=== PATIENT | female | born 1950 | race Caucasian/White ===

== ENCOUNTER 2017-03-05 10:03 | Inpatient (IN) | payer OTHER ==
[2017-02-19 15:42] VITALS: BMI 27.0
--- NOTE | 2017-02-19 16:03 | PAT Medication Instructions ---
Service Date Feb 19, 2017. Current Home Medication List Ascorbic Acid (Vitamin C Tr/Vaishnavi Hips), 1,000 MG PO QAM Cholecalciferol (Vitamin D3), 1 CAP PO QAM Coenzyme Q10 (Ubidecarenone) (Coq10), 100 MG PO QPM Lisinopril/Hctz (Zestoretic 20MG/12.5MG), 1 TAB PO QAM Loratadine (Claritin), 10 MG PO PRN Multiple Vitamin (Multi Vitamin), 1 TAB PO QAM Naproxen-Esomeprazole Magnesiu (Vimovo), 500 MG PO BID Saline (Saline Nasal [place] ), 1 SPRY CASSY PRN Sertraline (Zoloft), 100 MG PO QAM Simvastatin (Zocor), 20 MG PO QPM Tramadol/Acetaminophen (Ultracet), 1 TAB PO BID [Premarin Cream], 1 DOSE TOP [id number] Medication Instructions For Your Scheduled Surgery - Check with surgeon for instructions: Naproxen-Esomeprazole Magnesiu (Vimovo), 500 MG PO BID - Hold the following medications 2 weeks prior to surgery: Coenzyme Q10 (Ubidecarenone) (Coq10), 100 MG PO QPM - Hold the following medications 24 hours prior to surgery: [Premarin Cream], 1 DOSE TOP 2XWEEEK - Hold the following medications the morning of surgery: Multiple Vitamin (Multi Vitamin), 1 TAB PO QAM Loratadine (Claritin), 10 MG PO PRN Lisinopril/Hctz (Zestoretic 20MG/12.5MG), 1 TAB PO QAM Ascorbic Acid (Vitamin C Tr/Vaishnavi Hips), 1,000 MG PO QAM Cholecalciferol (Vitamin D3), 1 CAP PO QAM - Take the following medications the morning of surgery with a sip of water: Tramadol/Acetaminophen (Ultracet), 1 TAB PO BID Sertraline (Zoloft), 100 MG PO QAM Saline (Saline Nasal [place] Infant), 1 SPRY CASSY PRN (if needed) - Take the following medications as scheduled the night before surgery: Simvastatin (Zocor), 20 MG PO QPM Tramadol/Acetaminophen (Ultracet), 1 TAB PO BID Saline (Saline Nasal [place] Infant), 1 SPRY CASSY PRN (if needed) Loratadine (Claritin), 10 MG PO PRN (if needed) If you have any questions please call us at [phone] or [phone] or [phone]
--- NOTE | 2017-02-19 16:33 | DIAGNOSTIC IMAGING REPORT ---
CHEST PREADMISSION(PA/LAT) CLINICAL HISTORY: Preoperative chest COMPARISON STUDY: No previous studies for comparison. FINDINGS: The cardiac and mediastinal contours are normal. There is no evidence of focal pulmonary consolidation. There is no evidence of failure. No pleural effusions are visualized.[ Linear bibasilar opacities are felt to be atelectatic. IMPRESSION: No active disease in the chest. Electronically signed by: Lc Rich M.D. 02/19/2017 4:32 PM Dictated Date/Time: 02/19/2017 4:31 PM
[2017-02-19 16:45] LABS: BUN/CREATININE RATIO 29.2 (10-20); CALCIUM 9.4 mg/dl (8.5-10.1); CREATININE 0.78 mg/dl (0.60-1.20); POTASSIUM 3.9 mmol/L (3.5-5.1)
[2017-02-19 16:49] LABS: BASO % 0.4 %; BASO ABS # 0.03 K/uL (0-0.2); COMPLETE YES; EOS % 2.4 %; HEMATOCRIT 43.8 % (37-47); IG% 0.1 %; LYMPH % 29.6 %; LYMPH ABS # 2.35 K/uL (1.2-3.4); MEAN CELL VOLUME 93.2 fL (80-100); MEAN CORPUSCULAR HEMOGLOBIN 31.1 pg (25-34); MEAN CORPUSCULAR HGB CONC 33.3 g/dl (32-36); MEAN PLATELET VOLUME 10.3 fL (7.4-10.4); NEUT % 60.5 %; PLATELET COUNT 162 K/uL (130-400); WHITE BLOOD COUNT 7.95 K/uL (4.8-10.8)
[2017-02-19 16:57] LABS: PROTHROMBIN TIME (PATIENT) 10.5 SECONDS (9.0-12.0)
--- NOTE | 2017-02-28 11:58 | HISTORY & PHYSICAL EXAMINATION ---
DATE OF ADMISSION: 03/05/2017 CHIEF COMPLAINT: Loss of urine with coughing or sneezing, mass protruding from the vagina. HISTORY OF PRESENT ILLNESS: The patient is a 66-year-old 1, para 1, general health is good. She went through menopause at age 56, has had no bleeding since. She is experiencing loss of urine with coughing or sneezing for over a year and she now has the bladder start to bulge out through the vaginal opening for over 4 months. All these symptoms have been getting progressively worse. Recently been ultrasounded, showed no pathology. Pelvic exam revealed a cystocele and rectocele, good support of the cervix and uterus. Presently being scheduled for an anterior, posterior repair and suprapubic cystocath. PAST MEDICAL HISTORY: She has 1 child, a girl 25 years old. She has a history of high blood pressure and she is on lisinopril. ALLERGIES: She has no known drug allergies. PAST SURGICAL HISTORY: She has had a tonsillectomy and adenoidectomy. She had an ovarian cyst removed. She had a . She had breast reduction. CHRONIC MEDICATIONS: Include tramadol, Zoloft 100 mg a day and an anti-inflammatory medication. 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 FAMILY HISTORY: Mom at age 69 of complications of diabetes and congestive heart failure. Father at age 82 myocardial infarction. She has 1 brother and 3 sisters in good health. REVIEW OF SYSTEMS: HEAD: No symptoms of frequent or severe headaches. EYES: No symptoms of blurred vision or double vision. EARS: No symptoms of frequent ear infections, difficulty hearing. NOSE: No symptoms of frequent nosebleeds, difficulty breathing through her nose. THROAT: No symptoms of frequent or severe sore throats, difficulty swallowing. RESPIRATORY SYSTEM: No history of asthma, chest pain, shortness of breath. PHYSICAL EXAMINATION: GENERAL: Well-developed, well-nourished 66-year-old white female, alert, oriented x3 and cooperative in no acute distress, appeared her stated age. EYES: Conjunctivae are pink, sclerae white, no evidence of jaundice. EARS: Had normal light reflex bilaterally. NOSE: Had normal mucosa. Septum is midline. There were no polyps. THROAT: No erythema or evidence of infection. Teeth are in good state of repair. HEAD: Was normocephalic, normal distribution of hair. NECK: Supple. Trachea midline. Thyroid is not enlarged. There is no adenopathy appreciated. Both carotids are of good intensity. CHEST: Clear to auscultation and percussion. No wheezes, rales or rhonchi appreciated. HEART: Had regular rhythm. ABDOMEN: Soft and nontender. PELVIC EXAMINATION: Revealed normal-appearing cervix. The bladder would bulge out of the vaginal opening on coughing or sneezing. She appeared to have a second degree cystocele and a first to second degree rectocele. There was good support of the uterus and cervix. MUSCULOSKELETAL EXAMINATION: Revealed no calf tenderness. IMPRESSIONS OF THIS CASE: Status post T&A, status post , status post breast reduction, status post ovarian cystectomy and symptomatic cystocele and rectocele.
[~2017-03-05] VITALS: Ht 162.6 cm; Wt 72.7 kg
[2017-03-05] VITALS (14 sets, daily range): BP systolic 107–154; BP diastolic 59–79; PULSE 63–83; TEMP 36.3–36.8; O2SAT 86–99; Ht 162.6 cm; Wt 72.7 kg
[~2017-03-05 10:03] MED LIST: ACETAMINOPHEN 1000 MG/100 ML IV IV ONE; ASCO500T87 PO; CEFOXITIN IV 2,000 MG in DEXTROSE 5% 50ML 50 ML IV SCH; CHOL2000 PO; CLR10 PO; COEN100C7 PO; LACTATED RINGER'S 1000ML 1,000 ML IV SCH; LISI-787 PO; MULT-1027 PO; NAPR-943 PO; PREMARIN CREAM TOP; SALI1SPR15 NAE; SERT-234 PO; SIMV20TA2 PO; TRAMTAB5 PO
[2017-03-05] MEDS ORDERED: LIDOCAINE HCL 2% 2 ML VIAL (20MG/ML) ONE (10:22)
[2017-03-05] MEDS ORDERED: FENTANYL CITRATE INJ 50 MCG/1 ML 2 ML VIAL ONE ×2 (10:22→11:11)
[2017-03-05] MEDS ORDERED: PROPOFOL IV EMULSION 10 MG/ML 20 ML VIAL IV ONE (10:22)
[2017-03-05] MEDS ORDERED: MIDAZOLAM HCL 1 MG/ML 2ML VIAL ONE (10:22)
[2017-03-05] MEDS ORDERED: GLYCOPYRROLATE INJ 0.2 MG/ML VIAL ONE (10:24)
[2017-03-05] MEDS ORDERED: DEXAMETHASONE SOD INJ 4 MG/ML VIAL ONE (10:24)
[2017-03-05] MEDS ORDERED: ROCURONIUM BROMIDE 10 MG/ML 5 ML VIAL ONE (10:24)
[2017-03-05] MEDS ORDERED: ONDANSETRON INJ 2 MG/ML 2 ML VIAL ONE (10:24)
[2017-03-05] MEDS ORDERED: NEOSTIGMINE METHYLSULFATE 5 MG/5 ML SYR ONE (10:24)
[2017-03-05] MEDS ORDERED: LIDOCAINE/EPINEPHRINE 1% 20 ML VIAL ONE (10:47)
--- NOTE | 2017-03-05 11:08 | History & Physical Bridge Note ---
H&P Re-Evaluation Bridge Note: I have examined the patient, reviewed the History & Physical and in the interval since the performance of the History & Physical I have noted the following changes of clinical significance: No changes noted
[2017-03-05] MEDS ORDERED: MoRPHine SULFATE PF 1 MG/ML 10 ML AMP/VIAL ONE (11:11)
[2017-03-05] MEDS ORDERED: BUPIVACAINE/EPINEPHRINE 0.25% 1:200,000 30 ML VIAL ONE (11:11)
[2017-03-05] MEDS ORDERED: SULFANILAMIDE 15% CR 120 GM TUBE ONE (11:13)
[2017-03-05] MEDS ORDERED: BUPIVACAINE 0.25% 30 ML VIAL ONE (12:32)
[2017-03-05] MEDS ORDERED: MAGNESIUM HYDROXIDE SUSP 30 ML UDC PO PRN (14:00)
[2017-03-05] MEDS ORDERED: BISACODYL 10 MG SUPP PR PRN (14:00)
--- NOTE | 2017-03-05 14:01 | [facility] Post Operative Brief Note ---
Immediate Operative Summary Operative Date Mar 05, 2017. Pre-Operative Diagnosis status post ovarian cystectomy and symptomatic cystocele and rectocele Post-Operative Diagnosis status post ovarian cystectomy and symptomatic cystocele and rectocele Procedure(s) Performed anterior cholporraphy Surgeon Dr. Phong Arevalo Contemporary Or Modern Dancer Surgeon(s) none Estimated Blood Loss 50ml Findings cystocele second to third degree Specimens A) Vaginal Mucosa Complication(s) None Disposition Recovery Room / PACU
[2017-03-05] MEDS ORDERED: LACTATED RINGER'S 1000ML 500 ML IV PRN (14:24)
[2017-03-05] MEDS ORDERED: NALOXONE HCL INJ 0.08 MG in SYRINGE 1.8 ML IV PRN (14:24)
[2017-03-05] MEDS ORDERED: SODIUM CHLORIDE 0.9% 1000ML 1,000 ML IV PRN (14:24)
[2017-03-05] MEDS ORDERED: NALOXONE HCL INJ 1 MG in SODIUM CHLORIDE 0.9% 1000ML 1,000 ML IV PRN ×4 (14:24)
[2017-03-05] MEDS ORDERED: EpHEDrine SULFATE INJ 50 MG/ML AMP IV PRN (14:30)
[2017-03-05] MEDS ORDERED: NO NARCOTICS OR SEDATIVES SCH (14:30)
[2017-03-05] MEDS ORDERED: NALOXONE HCL 0.4 MG/1 ML VIAL/CARP IV PRN (14:30)
[2017-03-05] MEDS ORDERED: DiphenhydrAMINE HCL 50 MG/ML VIAL IV PRN (14:30)
[2017-03-05] MEDS ORDERED: PROMETHAZINE HCL INJ 25 MG in SODIUM CHLORIDE 0.9% 50ML 50 ML IV PRN (14:30)
[2017-03-05] MEDS ORDERED: NALBUPHINE HCL INJ 10 MG/ML AMP IV PRN (14:30)
[2017-03-05] MEDS ORDERED: ONDANSETRON INJ 2 MG/ML 2 ML VIAL IV PRN (14:30)
[2017-03-05] MEDS ORDERED: MoRPHine SULFATE PF 1 MG/ML 10 ML AMP/VIAL EPI PRN (14:30)
--- NOTE | 2017-03-05 14:41 | Anesthesiology Progress Note ---
Anesthesia Post Op Note Date & Time Mar 05, 2017 at 14:41 Vital Signs Pain Intensity: 0 Vital Signs Past 12 Hours Date Time Temp Pulse Resp B/P (MAP) Pulse Ox O2 Delivery O2 Flow Rate FiO2 03/05/17 14:35 84 20 144/69 94 Oxymask 2 03/05/17 14:25 86 20 135/76 96 Oxymask 5 03/05/17 14:15 88 20 125/87 98 Oxymask 10 03/05/17 14:05 36.0 95 20 104/87 98 Oxymask 10 03/05/17 11:07 36.8 63 20 129/63 Room Air Notes Mental Status: alert / awake / arousable, participated in evaluation Pt Amnestic to Procedure: Yes Nausea / Vomiting: adequately controlled Pain: adequately controlled Airway Patency, RR, SpO2: stable & adequate BP & HR: stable & adequate Hydration State: stable & adequate Anesthetic Complications: no major complications apparent
--- NOTE | 2017-03-05 14:53 | OPERATIVE REPORT ---
DATE OF OPERATION: 03/05/2017 INDICATIONS FOR SURGERY: Stress incontinence, mass protruding from the vagina on coughing or sneezing. PREOPERATIVE DIAGNOSIS: Stress incontinence, symptomatic cystocele, possible rectocele. POSTOPERATIVE DIAGNOSIS: Second to third degree cystocele with loss of urethrovesical angle support and good support of the rectum. PROCEDURE: Anterior colporrhaphy with insertion of suprapubic cystocath. SURGEON: Dr. Arevalo. ESTIMATED BLOOD LOSS: 50 mL. ANESTHESIA: General with spinal narcotics. OPERATIVE FINDINGS AND PROCEDURE: The patient was brought to the OR table, correctly identified by armband and conversation. Spinal narcotics was administered and then general anesthesia was administered. Perineum, vagina and lower abdomen were painted with Betadine paint, draped in usual sterile fashion. Catheter was used to empty the bladder. A weighted speculum was placed in the posterior vagina after the vagina was prepped with Betadine solution. Cystocele was identified, grasped in the midline 1 cm from the external urethral meatus and local with epinephrine was injected entire length of the anterior vagina right up to the cervix. Incision was made and then was continued to the cervix and the vaginal mucosa was dissected off the bladder laterally and up to the urethrovesical angle. Following this, interrupted sutures of 4-0 Vicryl was used to approximate the fascial layer supporting the bladder and supporting the bladder neck. This was done in 4 layers because of the extent of the defect. Then the excess vaginal mucosa was cut away and a suture of heavy duty chromic was used to support urethrovesical angle was placed lateral on each side, tied in the middle and then a mattress suture was used to approximate the vaginal angle at the angle of the urethrovesical angle and this was placed in a mattress fashion. Then the vaginal edges were approximated with interrupted figures of 4-0 Vicryl. Following this, hemostasis was good. Inspection of the posterior portion of the vagina revealed good support. You could feel the fascia was intact and also there was a vaginal capacity was rather small and performing a posterior repair would make the vagina nonfunctional. Following this iodoform packing soaked in sulfur used to pack the vagina then the bladder was filled with 500 mL of normal saline. Suprapubic catheterization was inserted by using a trocar to enter the bladder then threading the catheter in and then sewing it fast to the anterior abdominal wall and connected to gravity drainage. After this was done 200 mL of clear normal saline was removed from the bladder and then the suprapubic catheter was connected to gravity drainage. Estimated blood loss was 50 mL. I attest to the content of the Intraoperative Record and any orders documented therein. Any exception s are noted below.
[2017-03-05] MEDS: D5W AND LACTATED RINGERS 1,000 ML IV SCH ×2 (16:49→22:47)
[2017-03-05] MEDS: LISINOPRIL/HCTZ 20/12.5MG TAB PO SCH (18:00)
[2017-03-06] VITALS (12 sets, daily range): BP systolic 107–132; BP diastolic 61–74; PULSE 60–73; TEMP 36.4–36.6; O2SAT 94–98
[2017-03-06] MEDS: D5W AND LACTATED RINGERS 1,000 ML IV SCH (06:38)
[2017-03-06] MEDS ORDERED: DC INTRASPINAL MORPHINE SCH (07:00)
[2017-03-06] MEDS ORDERED: MEPERIDINE HCL 50 MG/ML CARP IV PRN ×2 (07:01)
[2017-03-06] MEDS ORDERED: ONDANSETRON INJ 2 MG/ML 2 ML VIAL IV PRN (07:01)
[2017-03-06] MEDS ORDERED: KETOROLAC TROMETHAMINE 15 MG/ML VIAL IV. PRN (07:01)
[2017-03-06 07:03] LABS: BASO % 0.1 %; BASO ABS # 0.01 K/uL (0-0.2); COMPLETE YES; HEMATOCRIT 38.7 % (37-47); IG% 0.2 %; LYMPH % 16.3 %; LYMPH ABS # 1.81 K/uL (1.2-3.4); MEAN CELL VOLUME 94.4 fL (80-100); MEAN CORPUSCULAR HEMOGLOBIN 30.7 pg (25-34); MEAN CORPUSCULAR HGB CONC 32.6 g/dl (32-36); MEAN PLATELET VOLUME 9.7 fL (7.4-10.4); MONO % 8.4 %; PLATELET COUNT 145 K/uL (130-400)
[2017-03-06] MEDS: SERTRALINE HCL 100 MG TAB PO SCH (08:36)
[2017-03-06] MEDS: LISINOPRIL/HCTZ 20/12.5MG TAB PO SCH (08:37)
[2017-03-06] MEDS: MULTIVITAMIN TAB PO SCH ×2 (08:48→10:20)
[2017-03-06] MEDS: IBUPROFEN 600 MG TAB PO PRN ×2 (10:21→19:21)
[2017-03-06] MEDS: OXYCODONE/ACETAMINOPHEN 5-325 TAB PO PRN ×2 (10:21→19:22)
--- NOTE | 2017-03-06 10:31 | Anesthesiology Progress Note ---
Anesthesia Post Op Note Date & Time Mar 06, 2017 at 10:29 Vital Signs Pain Intensity: 4.0 Vital Signs Past 12 Hours Date Time Temp Pulse Resp B/P (MAP) Pulse Ox O2 Delivery O2 Flow Rate FiO2 03/06/17 07:30 Room Air 03/06/17 07:30 36.4 68 18 110/69 (83) 95 Room Air 03/06/17 07:00 18 97 03/06/17 06:00 16 94 03/06/17 05:30 16 94 03/06/17 05:30 16 94 Room Air 03/06/17 04:15 18 97 03/06/17 04:15 36.6 73 18 107/61 (76) 97 Nasal Cannula 0.5 03/06/17 03:30 16 97 03/06/17 02:35 16 98 03/06/17 01:30 16 97 03/06/17 00:00 18 98 03/05/17 23:30 36.8 70 18 107/59 (75) 98 Nasal Cannula 1.0 03/05/17 23:30 98 Nasal Cannula 1.0 03/05/17 23:30 18 98 Notes Mental Status: alert / awake / arousable, participated in evaluation Pt Amnestic to Procedure: Yes Nausea / Vomiting: adequately controlled Pain: adequately controlled Airway Patency, RR, SpO2: stable & adequate BP & HR: stable & adequate Hydration State: stable & adequate Anesthetic Complications: no major complications apparent Anesthetic Complications: Pt c/o itching yesterday and throughout night. Benadryl was given with some relief.
--- NOTE | 2017-03-06 10:44 | Progress Note ---
Subjective Mar 06, 2017. Subjective conversation w/ patient Ambulation: ambulating normally Voiding: no voiding problems Passing Gas: Yes Diet Tolerance: Regular Diet Lochia: Small Review of Systems Constitutional: + fever Objective Vital Signs Date Time Temp Pulse Resp B/P (MAP) Pulse Ox O2 Delivery O2 Flow Rate FiO2 03/06/17 07:30 Room Air 03/06/17 07:30 36.4 68 18 110/69 (83) 95 Room Air 03/06/17 07:00 18 97 03/06/17 06:00 16 94 03/06/17 05:30 16 94 03/06/17 05:30 16 94 Room Air 03/06/17 04:15 18 97 03/06/17 04:15 36.6 73 18 107/61 (76) 97 Nasal Cannula 0.5 03/06/17 03:30 16 97 03/06/17 02:35 16 98 03/06/17 01:30 16 97 03/06/17 00:00 18 98 03/05/17 23:30 36.8 70 18 107/59 (75) 98 Nasal Cannula 1.0 03/05/17 23:30 98 Nasal Cannula 1.0 03/05/17 23:30 18 98 03/05/17 22:15 20 97 03/05/17 21:15 20 99 03/05/17 20:00 20 97 03/05/17 19:45 36.3 78 20 126/71 (89) 97 Nasal Cannula 1.5 03/05/17 18:53 18 98 03/05/17 18:00 36.3 76 18 117/62 (80) 97 Nasal Cannula 2.0 03/05/17 18:00 18 97 03/05/17 17:00 20 99 03/05/17 17:00 36.7 73 20 125/71 (89) 99 Nasal Cannula 2.0 03/05/17 16:59 88 Room Air 03/05/17 16:00 36.4 78 20 139/79 (99) 96 Nasal Cannula 2.0 03/05/17 16:00 20 96 03/05/17 15:59 86 Room Air 03/05/17 15:30 36.4 76 18 128/73 (91) 93 Room Air 03/05/17 15:00 Room Air 03/05/17 15:00 97 Nasal Cannula 2.0 03/05/17 15:00 36.6 83 20 154/74 (100) 97 Nasal Cannula 2.0 03/05/17 15:00 20 97 03/05/17 14:45 36.8 77 20 148/69 94 Oxymask 2 03/05/17 14:35 84 20 144/69 94 Oxymask 2 03/05/17 14:25 86 20 135/76 96 Oxymask 5 03/05/17 14:15 88 20 125/87 98 Oxymask 10 03/05/17 14:05 36.0 95 20 104/87 98 Oxymask 10 03/05/17 11:07 36.8 63 20 129/63 Room Air Physical Exam General Appearance: WELL-APPEARING Fundus: Firm, Non-Tender Extremities: no pedal edema, no calf tenderness Laboratory Results Last 24 Hours Test 03/06/17 06:47 White Blood Count 11.10 K/uL Red Blood Count 4.10 M/uL Hemoglobin 12.6 g/dL Hematocrit 38.7 % Mean Corpuscular Volume 94.4 fL Mean Corpuscular Hemoglobin 30.7 pg Mean Corpuscular Hemoglobin Concent 32.6 g/dl Platelet Count 145 K/uL Mean Platelet Volume 9.7 fL Neutrophils (%) (Auto) 75.0 % Lymphocytes (%) (Auto) 16.3 % Monocytes (%) (Auto) 8.4 % Eosinophils (%) (Auto) 0.0 % Basophils (%) (Auto) 0.1 % Neutrophils # (Auto) 8.33 K/uL Lymphocytes # (Auto) 1.81 K/uL Monocytes # (Auto) 0.93 K/uL Eosinophils # (Auto) 0.00 K/uL Basophils # (Auto) 0.01 K/uL RDW Standard Deviation 43.4 fL RDW Coefficient of Variation 12.6 % Immature Granulocyte % (Auto) 0.2 % Immature Granulocyte # (Auto) 0.02 K/uL Assessment and Plan Post-Op Day#: 1
[2017-03-06] MEDS ORDERED: NURSING VERBAL MED ORDER ONE ×2 (11:00→14:15)
[2017-03-06] MEDS ORDERED: [UNRECOGNIZED DRUG - REMARK] SCH (16:00)
[2017-03-06] MEDS: ESOMEPRAZOLE PO SCH (21:00)
[2017-03-06] MEDS: NAPROXEN PO SCH (21:00)
[2017-03-06] MEDS: SIMVASTATIN 20 MG TAB PO SCH (21:06)
[2017-03-07] MEDS: IBUPROFEN 600 MG TAB PO PRN
[2017-03-07] MEDS: OXYCODONE/ACETAMINOPHEN 5-325 TAB PO PRN ×6 (00:01→22:55)
[2017-03-07] MEDS ORDERED: SODIUM CHLORIDE 0.65% NA SOLN 45 ML (OCEAN) ONE (01:02)
[2017-03-07 06:31] LABS: BASO % 0.1 %; BASO ABS # 0.01 K/uL (0-0.2); COMPLETE YES; HEMATOCRIT 36.3 % (37-47); IG% 0.1 %; LYMPH % 38.8 %; LYMPH ABS # 3.13 K/uL (1.2-3.4); MEAN CELL VOLUME 94.8 fL (80-100); MEAN CORPUSCULAR HEMOGLOBIN 31.3 pg (25-34); MEAN CORPUSCULAR HGB CONC 33.1 g/dl (32-36); MEAN PLATELET VOLUME 9.9 fL (7.4-10.4); MONO % 7.3 %; NEUT % 50.7 %; PLATELET COUNT 126 K/uL (130-400); RED BLOOD COUNT 3.83 M/uL (4.2-5.4); WHITE BLOOD COUNT 8.07 K/uL (4.8-10.8)
[2017-03-07 07:57] VITALS: BP 120/75; PULSE 62; TEMP 36.7; O2SAT 93
[2017-03-07] MEDS ORDERED: CHOLECALCIFEROL 1000 INTER.UNIT TAB PO SCH (09:00)
[2017-03-07] MEDS: SERTRALINE HCL 100 MG TAB PO SCH (09:15)
[2017-03-07] MEDS: NAPROXEN PO SCH ×2 (09:15→20:35)
[2017-03-07] MEDS: ESOMEPRAZOLE PO SCH ×2 (09:15→20:35)
[2017-03-07] MEDS: LISINOPRIL/HCTZ 20/12.5MG TAB PO SCH (09:16)
[2017-03-07] MEDS: MULTIVITAMIN TAB PO SCH (09:16)
[2017-03-07] MEDS: CHOLECALCIFEROL 1000 INTER.UNIT TAB PO SCH (09:16)
[2017-03-07] MEDS: ASCORBIC ACID 500 MG TAB PO SCH (09:16)
--- NOTE | 2017-03-07 10:31 | Progress Note ---
Subjective Mar 07, 2017. Subjective conversation w/ patient Ambulation: ambulating normally Voiding: no voiding problems, swann catheter in place Passing Gas: Yes Diet Tolerance: Regular Diet Lochia: Small Review of Systems Constitutional: + fever Objective Vital Signs Date Time Temp Pulse Resp B/P (MAP) Pulse Ox O2 Delivery O2 Flow Rate FiO2 03/07/17 08:00 Room Air 03/07/17 07:57 36.7 62 16 120/75 (90) 93 Room Air 03/06/17 23:15 96 Room Air 03/06/17 16:00 36.4 66 20 132/74 (93) 94 Room Air 03/06/17 16:00 Room Air 03/06/17 11:40 36.6 60 18 110/70 (83) 94 Room Air Physical Exam General Appearance: WELL-APPEARING Respiratory/Chest: lungs clear Abdomen: non tender Extremities: no pedal edema, no calf tenderness Laboratory Results Last 24 Hours Test 03/07/17 06:07 White Blood Count 8.07 K/uL Red Blood Count 3.83 M/uL Hemoglobin 12.0 g/dL Hematocrit 36.3 % Mean Corpuscular Volume 94.8 fL Mean Corpuscular Hemoglobin 31.3 pg Mean Corpuscular Hemoglobin Concent 33.1 g/dl Platelet Count 126 K/uL Mean Platelet Volume 9.9 fL Neutrophils (%) (Auto) 50.7 % Lymphocytes (%) (Auto) 38.8 % Monocytes (%) (Auto) 7.3 % Eosinophils (%) (Auto) 3.0 % Basophils (%) (Auto) 0.1 % Neutrophils # (Auto) 4.09 K/uL Lymphocytes # (Auto) 3.13 K/uL Monocytes # (Auto) 0.59 K/uL Eosinophils # (Auto) 0.24 K/uL Basophils # (Auto) 0.01 K/uL RDW Standard Deviation 43.6 fL RDW Coefficient of Variation 12.6 % Immature Granulocyte % (Auto) 0.1 % Immature Granulocyte # (Auto) 0.01 K/uL Assessment and Plan Post-Op Day#: 2 Continue Routine Care: urine has turned blood tinged will start on antibiotics and send for culture
[2017-03-07] MEDS: CIPROFLOXACIN 500 MG TAB PO SCH ×2 (11:35→20:34)
[2017-03-07 15:50] VITALS: BP 122/76; PULSE 64; TEMP 36.8; O2SAT 95
[2017-03-07] MEDS: SENNA 8.6 MG TAB PO PRN (20:34)
[2017-03-07] MEDS: SIMVASTATIN 20 MG TAB PO SCH (20:34)
[2017-03-07 23:15] VITALS: BP 134/77; PULSE 68; TEMP 36.4; O2SAT 93
[2017-03-08 03:45] VITALS: BP 125/76; PULSE 67; TEMP 36.8; O2SAT 94
[2017-03-08] MEDS: OXYCODONE/ACETAMINOPHEN 5-325 TAB PO PRN ×5 (03:49→20:20)
[2017-03-08 07:30] VITALS: BP 126/72; PULSE 65; TEMP 36.8; O2SAT 96
[2017-03-08] MEDS: MULTIVITAMIN TAB PO SCH (08:52)
--- NOTE | 2017-03-08 08:52 | Progress Note ---
Subjective Mar 08, 2017. Subjective conversation w/ patient Ambulation: ambulating normally Voiding: no voiding problems, swann catheter in place Passing Gas: Yes Diet Tolerance: Regular Diet Lochia: Small Review of Systems Constitutional: + fever Objective Vital Signs Date Time Temp Pulse Resp B/P (MAP) Pulse Ox O2 Delivery O2 Flow Rate FiO2 03/08/17 07:30 96 Room Air 03/08/17 07:30 36.8 65 18 126/72 (90) 96 Room Air 03/08/17 03:45 36.8 67 18 125/76 (92) 94 Room Air 03/07/17 23:15 93 Room Air 03/07/17 23:15 36.4 68 20 134/77 (96) 93 Room Air 03/07/17 15:50 36.8 64 16 122/76 (91) 95 Room Air 03/07/17 15:50 95 Room Air Physical Exam General Appearance: WELL-APPEARING Respiratory/Chest: lungs clear Abdomen: non tender Extremities: no pedal edema, no calf tenderness Assessment and Plan Post-Op Day#: 3 Continue Routine Care: urine is now clear will start clamping suprapubic catheter
[2017-03-08] MEDS: CHOLECALCIFEROL 1000 INTER.UNIT TAB PO SCH (08:53)
[2017-03-08] MEDS: LISINOPRIL/HCTZ 20/12.5MG TAB PO SCH (08:54)
[2017-03-08] MEDS: SERTRALINE HCL 100 MG TAB PO SCH (08:54)
[2017-03-08] MEDS: ASCORBIC ACID 500 MG TAB PO SCH (08:54)
[2017-03-08] MEDS: CIPROFLOXACIN 500 MG TAB PO SCH ×2 (08:55→20:22)
[2017-03-08] MEDS: NAPROXEN PO SCH ×2 (08:56→20:22)
[2017-03-08] MEDS: ESOMEPRAZOLE PO SCH ×2 (08:56→20:22)
[2017-03-08] MEDS ORDERED: NURSING VERBAL MED ORDER ONE (09:15)
[2017-03-08] MEDS: DOCUSATE SODIUM 100 MG CAP PO SCH ×2 (09:40→20:21)
[2017-03-08 12:30] VITALS: BP 148/80; PULSE 70; TEMP 36.8
[2017-03-08 16:00] VITALS: BP 129/68; PULSE 59; TEMP 36.6; O2SAT 100
[2017-03-08] MEDS: SIMVASTATIN 20 MG TAB PO SCH (20:21)
[2017-03-08 23:35] VITALS: BP 146/72; PULSE 65; TEMP 36.4; O2SAT 95
[2017-03-09] MEDS: OXYCODONE/ACETAMINOPHEN 5-325 TAB PO PRN ×4 (00:07→12:06)
[2017-03-09] MEDS: SENNA 8.6 MG TAB PO PRN (00:13)
[2017-03-09 04:00] VITALS: BP 137/78; PULSE 68; TEMP 36.4; O2SAT 92
[2017-03-09 07:45] VITALS: BP 136/81; PULSE 70; TEMP 36.7; O2SAT 95
--- NOTE | 2017-03-09 08:20 | Progress Note ---
Subjective Mar 09, 2017. Subjective conversation w/ patient Ambulation: ambulating normally Voiding: no voiding problems, swann catheter in place Passing Gas: Yes Diet Tolerance: Regular Diet Lochia: Small Review of Systems Constitutional: + fever Objective Vital Signs Date Time Temp Pulse Resp B/P (MAP) Pulse Ox O2 Delivery O2 Flow Rate FiO2 03/09/17 07:45 95 Room Air 03/09/17 07:45 36.7 70 18 136/81 (99) 95 Room Air 03/09/17 04:00 36.4 68 18 137/78 (97) 92 Room Air 03/08/17 23:35 95 Room Air 03/08/17 23:35 36.4 65 20 146/72 (96) 95 Room Air 03/08/17 16:00 Room Air 03/08/17 16:00 36.6 59 16 129/68 (88) 100 Room Air 03/08/17 12:30 36.8 70 18 148/80 (102) Room Air Physical Exam General Appearance: WELL-APPEARING Respiratory/Chest: lungs clear Extremities: no pedal edema, no calf tenderness Assessment and Plan Post-Op Day#: 4 Continue Routine Care: voiding >300 ml with high residuals
--- NOTE | 2017-03-09 08:23 | Discharge Instructions ---
Discharge Instructions Date of Service Mar 09, 2017. Admission Reason for Admission: Cystocele with Loss of Urethral Angle; Rectocele Discharge Discharge Diagnosis / Problem: cystocele with stress incontience Discharge Goals Goal(s): Routine recovery after surgery Activity Recommendations Activity Limitations: as noted below ACTIVITY RECOMMENDATIONS: * Gradual return to full activity over next 2-3 weeks. * No heavy lifting over next 2-3 weeks. * Nothing in the vagina (no intercourse, tampons, or douching) for 4 weeks * You may walk up and down steps as necessary. * You may drive a car in 2 weeks. * Hot shower or tub bath daily. SPECIAL CARE INSTRUCTIONS: * Check temperature twice daily for one week. Report any elevation over 100.4 degrees Fahrenheit (38.0 degrees Celsius). * Call your doctor if bleeding becomes heavier than the heaviest part of your period - saturating a sanitary pad within an hour. * If you develop a red, hard, warm swollen lump on your incision or if you develop any separation of or drainage from your incision, notify your doctor. . Instructions / Follow-Up Instructions / Follow-Up ACTIVITY RECOMMENDATIONS: * Gradual return to full activity over next 2-3 weeks. * No heavy lifting over next 2-3 weeks. * Nothing in the vagina (no intercourse, tampons, or douching) for 4 weeks * You may walk up and down steps as necessary. * You may drive a car in 2 weeks. * Hot shower or tub bath daily. SPECIAL CARE INSTRUCTIONS: * Check temperature twice daily for one week. Report any elevation over 100.4 degrees Fahrenheit (38.0 degrees Celsius). * Call your doctor if bleeding becomes heavier than the heaviest part of your period - saturating a sanitary pad within an hour. * If you develop a red, hard, warm swollen lump on your incision or if you develop any separation of or drainage from your incision, notify your doctor. Current Hospital Diet Patient's current hospital diet: Regular Diet Discharge Diet Recommended Diet: Regular Diet Procedures Procedures Performed: Anterior Posterior Repair; Insertion of Suprapubic Cystocath Pending Studies Studies pending at discharge: no Medical Emergencies . Who to Call and When: Medical Emergencies: If at any time you feel your situation is an emergency, please call 911 immediately. . Non-Emergent Contact Non-Emergency issues call your: Vice President Digital Strategist Call Non-Emergent contact if: temperature is above 100.5 . . "Provider Documentation" section prepared by Phong Arevalo. . VTE Core Measure Inpt VTE Proph given/why not?: Treatment not indicated
--- NOTE | 2017-03-09 08:45 | DISCHARGE SUMMARY ---
Mrs. Ortega was admitted for are a symptomatic cystocele and urinary stress incontinence. She had a mass protruding from her vagina when she coughed, sneezed or strained. She also has had some loss of urine when she coughed, sneezed or strained and she would have to reduce the bladder into her vagina to empty when she went to void. The day of admission, she was taken to the OR, given prophylactic antibiotics, underwent an anterior colporrhaphy with insertion of suprapubic cysto cath postoperatively. She did develop some hematuria. When she was taken off the OR table, the urine was absolutely clean, but about 2 days later, she developed mild hematuria. Urine culture was taken. She was started on Cipro. This resolved within 24 hours. A vaginal packing was placed at time of surgery and was removed 2 days later. On the third postoperative day, the suprapubic catheter was clamped and she attempted to void. She was voiding 300-400 mL at a time; however residuals, at times, were over 250 mL. Therefore, we discharged her with the suprapubic catheter in place. She was capable of managing the catheter, had instructions on how to do that, keep a log of her residuals. Her preoperative hemoglobin was 14.6, hematocrit 43.8. Postoperatively, hemoglobin fell to 12.0, hematocrit 36.3. She was also given prescriptions for Cipro to take at home and also for Percocet to take p.r.n. for discomfort. She is going to call the office on Saturday; if her residuals are low enough, she will shave the catheter removed.
[2017-03-09] MEDS: ESOMEPRAZOLE PO SCH (09:21)
[2017-03-09] MEDS: NAPROXEN PO SCH (09:21)
[2017-03-09] MEDS: LISINOPRIL/HCTZ 20/12.5MG TAB PO SCH (09:22)
[2017-03-09] MEDS: SERTRALINE HCL 100 MG TAB PO SCH (09:22)
[2017-03-09] MEDS: DOCUSATE SODIUM 100 MG CAP PO SCH (09:22)
[2017-03-09] MEDS: MULTIVITAMIN TAB PO SCH (09:23)
[2017-03-09] MEDS: CHOLECALCIFEROL 1000 INTER.UNIT TAB PO SCH (09:23)
[2017-03-09] MEDS: ASCORBIC ACID 500 MG TAB PO SCH (09:24)
[2017-03-09] MEDS: CIPROFLOXACIN 500 MG TAB PO SCH (09:24)
[2017-03-09 13:00] VITALS: BP 136/81; PULSE 70; TEMP 36.7; O2SAT 95
== END 2017-03-09 13:00 | disposition home or self-care (01) | DRG 747 ==
LOC: C.ACU 10:03 → C.MS4N 13:55
PROVIDERS: ADMIT Obstetrics & Gynecology; ATTEND Obstetrics & Gynecology
PROC: 0T9B00Z Drainage of Bladder with Drainage Device, Open Approach (ICD-10-PCS; principal; 2017-03-05 11:30)
PROC: 0UQG0ZZ Repair Vagina, Open Approach (ICD-10-PCS; principal; 2017-03-05 11:30)
DX: N81.10 Cystocele, unspecified (principal); N39.3 Stress incontinence (female) (male); Z78.0 Asymptomatic menopausal state; Z79.899 Other long term (current) drug therapy